=== PATIENT | male | born 1980 | race Hispanic/Latino ===

== ENCOUNTER 2018-04-14 11:42 | Emergency (ER) | payer OTHER ==
[2018-04-14] MEDS ORDERED: ALBUTEROL SULFATE 0.083% 2.5 MG/3 ML INH IH ONE (12:37)
== END 2018-04-14 13:59 | disposition home or self-care (01) ==
LOC: EDH 11:42
DX: J10.1 Influenza due to other identified influenza virus with other respiratory manifestations (principal); Z90.49 Acquired absence of other specified parts of digestive tract
CPT/HCPCS: 71046; 87804; 94640